=== PATIENT | female | born 1950 | race Two or more races ===

== ENCOUNTER 2019-10-10 12:44 | Inpatient (IN) | payer OTHER ==
[~2019-10-10] VITALS: Ht 149.9 cm; Wt 44.5 kg
[2019-10-10] MEDS ORDERED: COZAAR25 MG (12:52)
[2019-10-10] MEDS ORDERED: MULTIPLE VITAM1 EAC2 (12:53)
[2019-10-21] MEDS ORDERED: MULTIPLE VITAM1 EAC2 PO (17:15)
[2019-10-21] MEDS ORDERED: PREDNISONE20 MG PO (17:15)
[2019-10-21] MEDS ORDERED: LEVOTHYROXINE25 MCG PO (17:15)
[2019-10-21] MEDS ORDERED: INTEGRA F CAPS1 EACH PO (17:15)
[2019-10-21] MEDS ORDERED: ABANEU-SL TABL1 EACH SL (17:15)
[2019-10-21] MEDS ORDERED: AMLODIPINE BESYL5 MG PO (17:15)
[2019-10-21] MEDS ORDERED: FLUCONAZOLE100 MG PO (17:15)
[2019-10-21] MEDS ORDERED: PROTEINEX-18 LI30 ML PO (17:15)
[2019-10-21] MEDS ORDERED: PYRIDOXINE HCL100 MG PO (17:15)
[2019-10-21] MEDS ORDERED: FAMOTIDINE20 MG PO (17:15)
== END 2019-10-21 20:06 | disposition home or self-care (01) | DRG 371 ==
LOC: ER 12:44 → SEC-K 19:16 → SURH 19:16
PROVIDERS: ADMIT Internal Medicine Geriatric Medicine; ATTEND Internal Medicine Geriatric Medicine
PROC: CB2YYZZ Tomographic (Tomo) Nuclear Medicine Imaging of Respiratory System using Other Radionuclide (ICD-10-PCS; 2019-10-10)
PROC: BW21ZZZ Computerized Tomography (CT Scan) of Abdomen and Pelvis (ICD-10-PCS; 2019-10-10)
PROC: 02HV33Z Insertion of Infusion Device into Superior Vena Cava, Percutaneous Approach (ICD-10-PCS; principal; 2019-10-11)
PROC: 3E0436Z Introduction of Nutritional Substance into Central Vein, Percutaneous Approach (ICD-10-PCS; 2019-10-11)
PROC: BW30ZZZ Magnetic Resonance Imaging (MRI) of Abdomen (ICD-10-PCS; 2019-10-17)
PROC: B335ZZZ Magnetic Resonance Imaging (MRI) of Bilateral Common Carotid Arteries (ICD-10-PCS; 2019-10-18)
PROC: B338ZZZ Magnetic Resonance Imaging (MRI) of Bilateral Internal Carotid Arteries (ICD-10-PCS; 2019-10-18)
DX: K63.0 Abscess of intestine (principal); E43 Unspecified severe protein-calorie malnutrition; N17.8 Other acute kidney failure; B37.0 Candidal stomatitis; N17.9 Acute kidney failure, unspecified; J43.9 Emphysema, unspecified; I12.9 Hypertensive chronic kidney disease with stage 1 through stage 4 chronic kidney disease, or unspecified chronic kidney disease; N18.9 Chronic kidney disease, unspecified; D64.9 Anemia, unspecified; E83.52 Hypercalcemia; E86.0 Dehydration; B37.3 Candidiasis of vulva and vagina; E03.9 Hypothyroidism, unspecified; M31.6 Other giant cell arteritis
CPT/HCPCS: 70544; 72195; 74181

== ENCOUNTER 2019-10-29 11:39 | Inpatient (IN) | payer OTHER ==
[~2019-10-29] VITALS: Ht 152.4 cm; Wt 43.1 kg
[~2019-10-29 11:39] MED LIST: ABANEU-SL TABL1 EACH SL; AMLODIPINE BESYL5 MG PO; COZAAR25 MG; FAMOTIDINE20 MG PO; FLUCONAZOLE100 MG PO; INTEGRA F CAPS1 EACH PO; LEVOTHYROXINE25 MCG PO; MULTIPLE VITAM1 EAC2; MULTIPLE VITAM1 EAC2 PO; PREDNISONE20 MG PO; PROTEINEX-18 LI30 ML PO; PYRIDOXINE HCL100 MG PO
--- NOTE | 2019-10-29 11:53 | NUR ---
SE RECIBE PACIENTE EN UNIDAD DE AMBULANCIA ALERTA Y ORIENTADA X3. PACIENTE REFIERE DOLOR ABDOMINAL DESDE HOY CON DEBILIDAD. AL PACIENTE SE LE DARIUS SIGNOS VITALES Y SE LE UBICA EN MATTHIAS.
--- NOTE | 2019-10-29 12:38 | NUR ---
PACIENTE ALERTA Y ORIENTADA EN ELA DEMARCO ESFERAS EN COMPANIA DE FAMILIAR. SE ORIENTA A PACIENTE SOBRE PROCEDIMIENTO Y TX, REFIERE ENTENDER. SE EXTRAE MUESTRAS DE LABORATORIO CON MEDIDAS ASEPTICAS Y SE ADMINISTRA MEDICAMENTO ORTIZ ORDEN MEDICA.
== END 2019-11-30 10:27 | disposition expired | DRG 347 ==
LOC: ER 11:39 → MEDJ 16:03 → SEC-K 16:03 → MEDJ 17:07
PROVIDERS: Surgery; ADMIT Internal Medicine Geriatric Medicine; ATTEND Internal Medicine Geriatric Medicine
PROC: 3E0436Z Introduction of Nutritional Substance into Central Vein, Percutaneous Approach (ICD-10-PCS; 2019-10-29)
PROC: 0T9B70Z Drainage of Bladder with Drainage Device, Via Natural or Artificial Opening (ICD-10-PCS; 2019-10-29)
PROC: 4A033R1 Measurement of Arterial Saturation, Peripheral, Percutaneous Approach (ICD-10-PCS; 2019-10-30)
PROC: 3E0F7GC Introduction of Other Therapeutic Substance into Respiratory Tract, Via Natural or Artificial Opening (ICD-10-PCS; 2019-10-30)
PROC: 02H633Z Insertion of Infusion Device into Right Atrium, Percutaneous Approach (ICD-10-PCS; 2019-10-30)
PROC: 4A12X4Z Monitoring of Cardiac Electrical Activity, External Approach (ICD-10-PCS; 2019-10-30)
PROC: BB24ZZZ Computerized Tomography (CT Scan) of Bilateral Lungs (ICD-10-PCS; 2019-10-31)
PROC: BW21ZZZ Computerized Tomography (CT Scan) of Abdomen and Pelvis (ICD-10-PCS; 2019-10-31)
PROC: 0W9F30Z Drainage of Abdominal Wall with Drainage Device, Percutaneous Approach (ICD-10-PCS; 2019-11-07)
PROC: B24BZZZ Ultrasonography of Heart with Aorta (ICD-10-PCS; 2019-11-07)
PROC: B54DZZZ Ultrasonography of Bilateral Lower Extremity Veins (ICD-10-PCS; 2019-11-08)
PROC: CD171ZZ Planar Nuclear Medicine Imaging of Gastrointestinal Tract using Technetium 99m (Tc-99m) (ICD-10-PCS; 2019-11-09)
PROC: 30243N1 Transfusion of Nonautologous Red Blood Cells into Central Vein, Percutaneous Approach (ICD-10-PCS; 2019-11-09)
PROC: 06BY0ZC Excision of Hemorrhoidal Plexus, Open Approach (ICD-10-PCS; principal; 2019-11-27 16:00)
PROC: CP151ZZ Planar Nuclear Medicine Imaging of Spine using Technetium 99m (Tc-99m) (ICD-10-PCS; 2019-11-28)
DX: K57.31 Diverticulosis of large intestine without perforation or abscess with bleeding (principal); K65.1 Peritoneal abscess; I46.9 Cardiac arrest, cause unspecified; N17.8 Other acute kidney failure; N39.0 Urinary tract infection, site not specified; E44.0 Moderate protein-calorie malnutrition; F33.3 Major depressive disorder, recurrent, severe with psychotic symptoms; D62 Acute posthemorrhagic anemia; J98.11 Atelectasis; J90 Pleural effusion, not elsewhere classified; C90.00 Multiple myeloma not having achieved remission; R18.8 Other ascites; I96 Gangrene, not elsewhere classified; E87.2 Acidosis; N18.4 Chronic kidney disease, stage 4 (severe); K62.5 Hemorrhage of anus and rectum; E86.0 Dehydration; E87.8 Other disorders of electrolyte and fluid balance, not elsewhere classified; E83.52 Hypercalcemia; E03.8 Other specified hypothyroidism; I12.9 Hypertensive chronic kidney disease with stage 1 through stage 4 chronic kidney disease, or unspecified chronic kidney disease; I08.1 Rheumatic disorders of both mitral and tricuspid valves; L89.152 Pressure ulcer of sacral region, stage 2; I87.2 Venous insufficiency (chronic) (peripheral); K80.80 Other cholelithiasis without obstruction; K82.8 Other specified diseases of gallbladder; K64.1 Second degree hemorrhoids; B96.5 Pseudomonas (aeruginosa) (mallei) (pseudomallei) as the cause of diseases classified elsewhere; D63.8 Anemia in other chronic diseases classified elsewhere; B95.7 Other staphylococcus as the cause of diseases classified elsewhere; B95.2 Enterococcus as the cause of diseases classified elsewhere; B96.7 Clostridium perfringens [C. perfringens] as the cause of diseases classified elsewhere; D47.2 Monoclonal gammopathy; R31.29 Other microscopic hematuria; M31.6 Other giant cell arteritis; Z20.828 Contact with and (suspected) exposure to other viral communicable diseases; Z66 Do not resuscitate; Z74.01 Bed confinement status